=== PATIENT | female | born 1945 | race Caucasian/White ===

== ENCOUNTER → 2016-07-20 | Outpatient (CLI) | payer MEDICARE, OTHER ==
[~2016-07-20] MED LIST: ASP325TEC PO; ATOR40TA70 PO; CALC-196 PO; CALC-6 PO; CATHETER FLUSH 10 ML SYR IV PRN; ESTR0.755 PO; FURO20TA4 PO; FURO40TA4 PO; GLIM2TAB PO; GLMP2T PO; IOHEXOL 350 MG/ML 150 ML (OMNIPAQUE 350) VIAL IV ONE; LANS30TA4 PO; NS 100 ML (IVPB) BAG IV ONE; OXYC-12 PO; PANT20TA3 PO; PARO10TA3 PO; PIOG1TAB20 PO; PIOG30TA26 PO; POTA20TA15 PO; PRX10T PO; RIVA1TAB PO; VITA150T PO
[2016-07-20 14:41] LABS: CREATININE SERUM 1.14 MG/DL (0.60-1.30)
--- NOTE | 2016-07-20 15:08 | Diagnostic Imaging Report ---
EXAMINATION: Bilateral lower extremity duplex venous ultrasound. TECHNIQUE: DVT protocol. Multiple sonographic images with color Doppler and waveform interrogation were performed of the lower extremity veins, bilaterally, with compression and augmentation maneuvers. INDICATION: Bilateral leg edema. History of shortness of breath and the pulmonary embolism. FINDINGS: The lower extremity veins from the common femoral veins to below the knee veins were examined with normal color-flow, compressibility and normal waveform demonstrated. The patient's large body habitus prevent good visualization of the infrapopliteal veins. IMPRESSION: No evidence of DVT in either lower extremity. Dictated by: Dictated on workstation # [id number]
--- NOTE | 2016-07-20 16:09 | Diagnostic Imaging Report ---
PROCEDURE: CT angiography of the chest with contrast. TECHNIQUE: Multiple contiguous axial images were obtained through the chest after uneventful bolus administration of intravenous contrast. Reconstructed CTA MIP acquisitions were also performed. INDICATION: Pulmonary embolism. Shortness of breath. CONTRAST: 125 ML of Omnipaque 350 is administered intravenously. COMPARISON: 12/10/2015. FINDINGS: The pulmonary artery is dilated at 4.2 cm in caliber. There is no definite filling defect seen within the pulmonary arteries at this time to suggest an acute pulmonary embolus. The previously seen embolus appears less prominent and adherent to the wall compatible with near complete recanalization. The thoracic aorta is normal in caliber. There is no dissection. The heart size is normal. No pericardial effusion. The lungs demonstrate scarring in the left upper lobe. There is heterogeneity in the lung parenchymal densities, which may relate to areas of air trapping. This could also be related to mosaic perfusion seen with chronic peripheral pulmonary embolism. There is no mediastinal mass or significantly enlarged lymph node seen. No axillary lymphadenopathy is seen. Sections of the upper abdomen demonstrate a right adrenal nodule, unchanged from the prior exam measuring 1.7 cm and may relate to an adenoma. The osseous structures demonstrate mild degenerative changes. IMPRESSION: 1. No acute pulmonary embolism. Sequela of recanalized small embolus in the left upper lobe with left upper lobe scarring suggested. 2. There is dilatation of the pulmonary artery up to 4.2 cm which could relate to pulmonary hypertension. Dictated by: Dictated on workstation # [id number]
== END ==
LOC: RAD 14:08
PROVIDERS: ATTEND Nurse Practitioner Family
DX: I26.99 Other pulmonary embolism without acute cor pulmonale (principal); J98.4 Other disorders of lung; J06.9 Acute upper respiratory infection, unspecified; R06.09 Other forms of dyspnea
CPT/HCPCS: 36415; 71275; 82565; 84520; 93970